=== PATIENT | male | born 1990 | race African-American/Black ===

== ENCOUNTER 2016-04-19 11:19 | Emergency (ER) | payer MEDICAID ==
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
[2016-04-19 15:06] LABS: ABSOLUTE BASOPHILS # (AUTO) 0.1 10^3/uL (0.0-0.2); ABSOLUTE EOSINOPHILS # (AUTO) 0.3 10^3/uL (0.0-0.6); ABSOLUTE LYMPHOCYTES (AUTO) 2.7 10^3/uL (0.5-4.7); ABSOLUTE MONOCYTES (AUTO) 0.6 10^3/uL (0.1-1.4); ABSOLUTE NEUT (AUTO) 4.2 10^3/uL (1.7-8.2); BASOPHILS % (AUTO) 0.7 % (0-2); EOSINOPHILS % (AUTO) 3.6 % (0-6); HEMATOCRIT 41.3 % (37.9-51.0); HEMOGLOBIN 13.3 g/dL (13.5-17.0); HGB HCT DIFFERENCE -1.4; LYMPHOCYTES % (AUTO) 34.6 % (13-45); MEAN CORPUSCULAR HEMOGLOBIN 24.6 pg (27.0-33.4); MEAN CORPUSCULAR HGB CONC 32.1 g/dL (32.0-36.0); MEAN CORPUSCULAR VOLUME 77 fl (80-97); MONOCYTES % (AUTO) 7.5 % (3-13); RED BLOOD COUNT 5.39 10^6/uL (4.35-5.55); RED CELL DISTRIBUTION WIDTH 16.5 % (11.5-14.0); SEGMENTED NEUTROPHILS % (AUTO) 53.6 % (42-78); WHITE BLOOD COUNT 7.8 10^3/uL (4.0-10.5)
[2016-04-19 15:07] LABS: APPEARANCE,URINE CLEAR; BILIRUBIN,URINE NEGATIVE (NEGATIVE); GLUCOSE, URINE NEGATIVE (NEGATIVE); KETONES,URINE NEGATIVE (NEGATIVE); LEUKOCYTE ESTERASE,URINE NEGATIVE (NEGATIVE); NITRITE,URINE NEGATIVE (NEGATIVE); PROTEIN,URINE NEGATIVE (NEGATIVE); URINE SPECIFIC GRAVITY 1.006; UROBILINOGEN,URINE NEGATIVE mg/dL (<2.0)
[2016-04-19 15:25] LABS: URINE BARBITURATES SCREEN NEGATIVE; URINE METHADONE SCREEN NEGATIVE; URINE OPIATES LOW NEGATIVE; URINE PHENCYCLIDINE SCREEN NEGATIVE
[2016-04-19 15:26] LABS: ALANINE AMINOTRANSFERASE 40 U/L (21-72); ALBUMIN 4.3 g/dL (3.5-5.0); ALKALINE PHOSPHATASE 50 U/L (38-126); ANION GAP 11 (5-19); ASPARTATE AMINO TRANSFERASE 50 U/L (17-59); BILIRUBIN,TOTAL 0.5 mg/dL (0.2-1.3); BLOOD UREA NITROGEN 15 mg/dL (7-20); CALCIUM 9.5 mg/dL (8.4-10.2); CARBON DIOXIDE 23 mmol/L (22-30); CHLORIDE 106 mmol/L (98-107); CREATININE RESULT 1.12 mg/dL (0.52-1.25); GLUCOSE 117 mg/dL (75-110); POTASSIUM 4.2 mmol/L (3.6-5.0); SODIUM 140.4 mmol/L (137-145); TOTAL PROTEIN 7.5 g/dL (6.3-8.2)
[2016-04-19 15:28] LABS: ALCOHOL < 10 mg/dL (NONE DETECTED)
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
[2016-04-19] MEDS ORDERED: OLANZAPINE 5 MG TAB.RAPDIS PO ONE (16:38)
--- NOTE | 2016-04-19 18:00 | EKG REPORT ---
SEVERITY:- NORMAL ECG - SINUS RHYTHM ST ELEV, PROBABLE NORMAL EARLY REPOL PATTERN : Confirmed by: Laureano Martin 19-Apr-2016 18:00:01
[2016-04-19] MEDS: BENZTROPINE MESYLATE 1 MG TABLET PO SCH (23:10)
[2016-04-19] MEDS: OLANZAPINE 5 MG TAB.RAPDIS PO SCH (23:10)
[2016-04-20] MEDS: OLANZAPINE 5 MG TAB.RAPDIS PO SCH ×2 (10:29→22:00)
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
--- NOTE | 2016-04-20 16:22 | ER Document Report ---
Doctor's Note Notes: 04/20/16 16:21 Patient was seen earlier this morning, he was watching TV and had recently finished breakfast. Decision was made to place the patient in a psychiatric facility. This afternoon he was accepted at [facility] and will be going there soon.
[2016-04-20] MEDS: BENZTROPINE MESYLATE 1 MG TABLET PO SCH (22:00)
--- NOTE | 2016-04-21 01:39 | ER Document Report ---
Doctor's Note Notes: 04/21/16 01:38 [facility] apartment has arrived to transfer the patient. Has no complaints at this time. He looks well. A standing or walking around. His lung herrera are clear. He looks well. Patient is stable for transfer.
[2016-04-21 02:11] VITALS: BP 133/80
== END 2016-04-21 01:40 ==
LOC: ER 11:19
DX: F20.9 Schizophrenia, unspecified (principal); Z75.1 Person awaiting admission to adequate facility elsewhere
CPT/HCPCS: 93005; 99285; 36415; 80307 ×4; 85025; 80053; 81001; 93010; J3490 ×4

== ENCOUNTER 2016-09-24 11:17 | Emergency (ER) | payer MEDICAID, OTHER ==
[2016-09-24 11:32] VITALS: BP 128/85
--- NOTE | 2016-09-24 11:35 | ER Document Report ---
ED Medical Screen (RME) - General Chief Complaint: Laceration Stated Complaint: FINGER INJURY Time Seen by Provider: 09/24/16 11:34 Notes: Patient injured right index finger fine to repair a lawnmower. He states that his tetanus is not up-to-date. TRAVEL OUTSIDE OF THE [place].S. IN LAST 30 DAYS: No - Related Data Allergies/Adverse Reactions: No Known Allergies Allergy (Verified 09/24/16 11:29) Past Medical History - Past Medical History Cardiac Medical History: Reports: Hx Hypertension - Questionable Renal/ Medical History: Denies: Hx Peritoneal Dialysis Psychiatric Medical History: Reports: Hx Bipolar Disorder, Hx Schizophrenia Physical Exam - Vital signs Vitals: Temp Pulse Resp BP Pulse Ox 98.4 F 83 16 128/85 H 95 09/24/16 11:26 09/24/16 11:26 09/24/16 11:26 09/24/16 11:26 09/24/16 11:26 Course - Vital Signs Vital signs: Temp Pulse Resp BP Pulse Ox 98.4 F 83 16 128/85 H 95 09/24/16 11:26 09/24/16 11:26 09/24/16 11:26 09/24/16 11:26 09/24/16 11:26
[2016-09-24] MEDS ORDERED: DIPH/PERTUSS(ACELL)/TETANUS VAC/PF 0.5 ML SYR (>=10YO) IM ONE (12:11)
[2016-09-24] MEDS ORDERED: OXYCODONE-ACETAMINOPHEN 5-325 MG TABLET PO ONE (12:14)
[2016-09-24] MEDS ORDERED: ONDANSETRON 4 MG TAB.RAPDIS PO ONE (12:14)
[2016-09-24] MEDS ORDERED: LIDOCAINE 1% INJ-PF (10 MG/ML) 30 ML SDV INJ ONE (12:15)
--- NOTE | 2016-09-24 12:16 | ER Document Report ---
HPI - HPI Patient complains to provider of: cut right ring finger Onset: Just prior to arrival Onset/Duration: Sudden Pain Level: 4 Context: 26-year-old right haned male cut the ring finger right hand finger pad on lawnmower when he tried to unclog it manually prior to arrival. Tetanus is not current. Associated Symptoms: None Exacerbated by: Denies Relieved by: Denies Similar symptoms previously: No Recently seen / treated by doctor: No - ROS ROS below otherwise negative: Yes Systems Reviewed and Negative: Yes All other systems reviewed and negative - DERM Skin Color: Normal Past Medical History - General Information source: Patient - Social History Smoking Status: Unknown if Ever Smoked Frequency of alcohol use: None Drug Abuse: None Lives with: Family Family History: Reviewed & Not Pertinent Patient has suicidal ideation: No Patient has homicidal ideation: No - Past Medical History Cardiac Medical History: Reports: Hx Hypertension - Questionable Renal/ Medical History: Denies: Hx Peritoneal Dialysis Psychiatric Medical History: Reports: Hx Bipolar Disorder, Hx Schizophrenia Surgical Hx: Negative Vertical Provider Document - CONSTITUTIONAL Agree With Documented VS: Yes Exam Limitations: No Limitations - INFECTION CONTROL TRAVEL OUTSIDE OF THE [place] IN LAST 30 DAYS: No - HEENT HEENT: Atraumatic - NECK Neck: Supple - RESPIRATORY O2 Sat by Pulse Oximetry: 95 - MUSCULOSKELETAL/EXTREMETIES Musculoskeletal/Extremeties: MAEW, FROM, Tender - ring finger right hand finger pad (volar) flap cut, no nail injury - NEURO Level of Consciousness: Awake, Alert Motor/Sensory: No Motor Deficit, No Sensory Deficit - both flexor tendons intact - DERM Integumentary: Warm, Dry, Laceration - see above Course - Re-evaluation Re-evalutation: 09/24/16 13:23 xray is negative, only soft tissue injury - Vital Signs Vital signs: Temp Pulse Resp BP Pulse Ox 98.4 F 83 16 128/85 H 95 09/24/16 11:26 09/24/16 11:26 09/24/16 11:26 09/24/16 11:26 09/24/16 11:26 Procedures - Laceration/Wound Repair Right 4th digit Time completed: 13:17 Wound length (cm): 2 - flap wound edge Wound's Depth, Shape: Other - into sub q tissue Laceration pre-procedure: Sterile drapes applied, Other - surgiscrub Volume Anesthetic (mLs): 5 - digital block Wound explored: Clean Irrigated w/ Saline (mLs): 100 Wound Repaired With: Sutures Suture Size/Type: 4:0, Nylon Number of Sutures: 6 Post-procedure NV exam normal: No - due to finger block Complications: No Discharge - Discharge Clinical Impression: 4th right fingertip flap cut repair Condition: Good Disposition: HOME, SELF-CARE Instructions: Antibiotic Ointment Protection ([facility]), Tetanus Immunization Given ([facility]), Laceration Care ([facility]), Anti-Inflammatory Medication ([facility]) Additional Instructions: elevate keep dressing on for 24 hours, then remove to examine wound, watch for signs of infection-red,pus, swelling, increased pain continue to cover, keep clean and dry bacitracin for 2 days to er any concerns sutures out in 12 days you may find that the fingertip flap feels numb until the tiny nerves regenerate Please complete the patient satisfaction survey if you get one, and return it.. If you do not receive a survey, then you can go to the [facility] website, [email or web address] and place your comments about your very good care. Thank you very much. It was a pleasure being your medical provider today. Prescriptions: Ibuprofen [Motrin 800 mg Tablet] 800 mg PO Q8HP PRN #30 tablet PRN Reason: Oxycodone HCl/Acetaminophen [Percocet 5-325 mg Tablet] 1 - 2 tab PO ASDIR PRN # 10 tablet PRN Reason: Referrals: COLBY JOYA PA-C [Primary Care Provider] - Follow up as needed
--- NOTE | 2016-09-24 12:17 | RADIOLOGY REPORT (SQ) ---
EXAM DESCRIPTION: HAND RIGHT 3 VIEWS COMPLETED DATE/TIME: 09/24/2016 12:00 pm REASON FOR STUDY: right hand injury COMPARISON: None. EXAM PARAMETERS: NUMBER OF VIEWS: Three views. TECHNIQUE: AP, lateral and oblique radiographic images acquired of the right hand. LIMITATIONS: None. FINDINGS: MINERALIZATION: Normal. BONES: No acute fracture or dislocation. No worrisome bone lesions. JOINTS: No effusions. SOFT TISSUES: Soft tissue deformity and swelling of the distal 4th finger. No foreign body. OTHER: No other significant finding. IMPRESSION: SOFT TISSUE INJURY TO THE DISTAL 4TH FINGER. NO RADIOPAQUE FOREIGN BODY. NO ACUTE BONY FINDINGS. TECHNICAL DOCUMENTATION: JOB ID: [id number] [employer]- All Rights Reserved
== END 2016-09-24 13:32 | disposition home or self-care (01) ==
LOC: ER 11:17
PROC: 0HQFXZZ Repair Right Hand Skin, External Approach (ICD-10-PCS; principal; 2016-09-24)
DX: S61.214A Laceration without foreign body of right ring finger without damage to nail, initial encounter (principal); W45.8XXA Other foreign body or object entering through skin, initial encounter
CPT/HCPCS: 99283; 90471; 73130; 90715; 12001; S0119; J3490

== ENCOUNTER 2019-07-31 13:33 | Emergency (ER) | payer MEDICAID ==
[2019-07-31 13:42] VITALS: BP 142/84
--- NOTE | 2019-07-31 14:01 | ER Document Report ---
HPI - HPI Patient complains to provider of: Med refill Time Seen by Provider: 07/31/19 13:53 Onset: Other - 2 days Quality of pain: No pain Severity: None Pain Level: Denies Context: 29-year-old male presented to ED for complaint of not having his locations was bipolar and schizophrenia. He states he refilled them 2 days ago and he has tried to find them for 2 days and cannot find them so he has not had any medications for 2 days. He states he rents a room and other people live in the house and he does not know where his medicines are. He takes Seroquel 150 mg extended release daily and Cogentin 1 mg daily. He also takes Ativan. I have told him I would refill the Seroquel and Cogentin but not the Ativan. He needs to follow-up with his primary care as soon as possible to get refills on these medications I have refilled them for 7 days. Associated Symptoms: None Exacerbated by: Denies Relieved by: Denies Similar symptoms previously: No Recently seen / treated by doctor: Yes - ROS ROS below otherwise negative: Yes - CONSTITUTIONAL Constitutional: DENIES: Fever, Chills - EENT EENT: DENIES: Sore Throat, Ear Pain, Nasal Drainage-Clear, Nasal Drainage- Purulent, Congestion, Eye problems - NEURO Neurology: DENIES: Headache, Weakness, Vision blurred, Dizzinesss / Vertigo - CARDIOVASCULAR Cardiovascular: DENIES: Chest pain - RESPIRATORY Respiratory: DENIES: Trouble Breathing, Coughing - GASTROINTESTINAL Gastrointestinal: DENIES: Abdominal Pain, Nausea, Patient vomiting, Diarrhea, Constipation, Black / Bloody Stools - URINARY Urinary: DENIES: Dysuria, Urgency, Frequency - REPRODUCTIVE Reproductive: DENIES: :, Postmenopausal, Abnormal bleeding / discharge - MUSCULOSKELETAL Musculoskeletal: DENIES: Extremity pain, Back Pain, Neck Pain, Swelling - DERM Skin Color: Normal Skin Problems: None Past Medical History - General Information source: Patient - Social History Smoking Status: Current Every Day Smoker Chew tobacco use (# tins/day): No Frequency of alcohol use: None Drug Abuse: None Family History: Reviewed & Not Pertinent Patient has homicidal ideation: No - Past Medical History Cardiac Medical History: Reports: Hx Hypertension - Questionable Pulmonary Medical History: Reports: None EENT Medical History: Reports: None Neurological Medical History: Reports: None Endocrine Medical History: Reports: None Renal/ Medical History: Reports: None Malignancy Medical History: Reports None GI Medical History: Reports: None Musculoskeletal Medical History: Reports None Skin Medical History: Reports None Psychiatric Medical History: Reports: Hx Bipolar Disorder, Hx Schizophrenia Traumatic Medical History: Reports: None Infectious Medical History: Reports: None Vertical Provider Document - CONSTITUTIONAL Agree With Documented VS: Yes Exam Limitations: No Limitations General Appearance: WD/WN, No Apparent Distress - INFECTION CONTROL TRAVEL OUTSIDE OF THE [place]. IN LAST 30 DAYS: No - HEENT HEENT: Atraumatic, Normal ENT Exam, Normocephalic, PERRLA - NECK Neck: Normal Inspection, Supple, Thyroid Normal - RESPIRATORY Respiratory: Breath Sounds Normal, No Respiratory Distress - CARDIOVASCULAR Cardiovascular: Regular Rate, Regular Rhythm, No Murmur - GI/ABDOMEN Gastrointestinal: Abdomen Soft, Abdomen Non-Tender, No Organomegaly, Normal Bowel Sounds - MUSCULOSKELETAL/EXTREMETIES Musculoskeletal/Extremeties: MAEW, FROM, Non-Tender - NEURO Level of Consciousness: Awake, Alert, Appropriate - DERM Integumentary: Warm, Dry Course - Re-evaluation Re-evalutation: 07/31/19 14:03 Spoke with Aiden from mental health. She states to it is appropriate to feel the Seroquel and Cogentin but not the Ativan. She states give him 7 days worth and let him follow-up with his mental health provider. Patient was given prescription for 7 days sent to [facility] for his Cogentin and Seroquel. Patient verbalized understanding agreement with this treatment plan and was discharged home. - Vital Signs Vital signs: Temp Pulse Resp BP Pulse Ox 98.6 F 82 18 142/84 H 97 07/31/19 13:46 07/31/19 13:41 07/31/19 13:41 07/31/19 13:41 07/31/19 13:41 Discharge - Discharge Clinical Impression: Medication refill Condition: Stable Disposition: HOME, SELF-CARE Additional Instructions: You state that you picked up your Seroquel and Cogentin and you cannot find them. If you do find them do not double dose yourself. I have written you a refill for the Seroquel and Cogentin. I have sent your refills to [facility] as you state this is your pharmacy. Need to follow-up with your primary doctor to get refills after this week supply FOLLOW-UP CARE: If you have been referred to a physician for follow-up care, call the physicians office for an appointment as you were instructed or within the next two days. If you experience worsening or a significant change in your symptoms, notify the physician immediately or return to the Emergency Department at any time for re-evaluation. Prescriptions: Benztropine Mesylate [Cogentin 1 mg Tablet] 1 tab PO DAILY #7 tab Quetiapine Fumarate [Seroquel Xr] 150 mg PO DAILY #7 tab.er.24h Forms: Elevated Blood Pressure Referrals: COLBY JOYA PA-C [Primary Care Provider] - Follow up as needed
== END 2019-07-31 14:03 | disposition home or self-care (01) ==
LOC: ER 13:33
DX: Z76.0 Encounter for issue of repeat prescription (principal); F31.9 Bipolar disorder, unspecified; F20.9 Schizophrenia, unspecified; T43.596A Underdosing of other antipsychotics and neuroleptics, initial encounter; T44.3X6A Underdosing of other parasympatholytics [anticholinergics and antimuscarinics] and spasmolytics, initial encounter; Z91.128 Patient's intentional underdosing of medication regimen for other reason; Z91.14 Patient's other noncompliance with medication regimen; F17.200 Nicotine dependence, unspecified, uncomplicated
CPT/HCPCS: 99282